=== PATIENT | male | born 1960 | race Caucasian/White ===

== ENCOUNTER → 2016-03-18 | Outpatient (CLI) | payer OTHER ==
[2016-03-18 10:44] LABS: Blood Urea Nitrogen 12 mg/dL (9-20); Non-African American GFR(MDRD) >60 (>60 ml/min/1.73 sqM)
--- NOTE | 2016-03-18 15:36 | CT ---
EXAMINATION TYPE: CT Chest Abd Pelvis w con DATE OF EXAM: 03/18/2016 2:08 PM COMPARISON: 01/02/2016 HISTORY: Colon CA f/u CT DLP: 631.7 mGycm Automated exposure control for dose reduction was used. CONTRAST: CT scan of the chest, abdomen and pelvis is performed with Oral Contrast and with IV Contrast, patien t injected with 100 mL of Omnipaque 300. FINDINGS: CHEST: Right anterior chest wall injection port with catheter tip at the mid SVC. The heart is normal size with small basilar pericardial effusion. Aorta is normal caliber with conventional arch vessel branching anatomy. Scattered nonenlarged mediastinal lymph nodes. No thoracic lymphadenopathy by CT size criteria. Mild biapical pleural-parenchymal scarring. No suspicious pulmonary nodule or mass. No consolidation or pleural effusion. Correlate for COPD. ABDOMEN: Small hiatal hernia. Two hypodense lesions within the inferior right hepatic lobe are noted and are essentially unchanged measuring up to 1.6 cm. Numerous additional hepatic lesions are demonstrated and show areas of partia l calcification, largest within the right hepatic dome spanning up to 4.8 cm, also unchanged. The abiel cifications could reflect prior intra-arterial therapy. No new liver lesions are seen. Stable left lobe biliary ductal dilatation. Portal venous system is pa tent. Adrenal glands, left kidney, spleen, and pancreas show no gross normality. Numerous subcentimeter hypodensities within the right kidney too small for accurate CT characterizati on, stable suggestive of cortical cysts. No dilated small bowel, free fluid, or free air. No mesenteric or retroperitoneal lymphadenopathy. Or al contrast has progressed to the rectum. No pericolonic inflammatory change. PELVIS: Mild circumferential bladder wall thickening is noted. Prostate gland mild prominent measurin g 4.1 cm wide. No abnormal fluid collection the pelvis or pelvic lymphadenopathy seen. Bones: Mild de generative changes lower lumbar spine and mild endplate spondylosis midthoracic spine. No osseous kane tructive process. IMPRESSION: 1. Stable exam with multiple hepatic lesions most of which show partial calcification which could rep resent treated metastatic disease or prior transarterial therapy. No new or enlarging liver lesions a re seen. 2. Nonspecific mild circumferential bladder wall thickening could represent cystitis, bladder wall hy pertrophy, or posttreatment change. Clinically correlate. 3. No suspicious mass or lymphadenopathy seen.
== END | disposition home or self-care (01) ==
LOC: RADPROMAIN 09:59
PROVIDERS: ATTEND Internal Medicine Hematology & Oncology
DX: C18.9 Malignant neoplasm of colon, unspecified (principal); K76.9 Liver disease, unspecified; N32.89 Other specified disorders of bladder
CPT/HCPCS: 82565; 84520; 71260; 74177; 36415; Q9967

== ENCOUNTER → 2016-05-29 | Outpatient (CLI) | payer OTHER ==
--- NOTE | 2016-05-29 13:05 | XR ---
EXAMINATION TYPE: XR abdomen complete w decub DATE OF EXAM: 05/29/2016 1:01 PM COMPARISON: NONE HISTORY: Pain TECHNIQUE: Supine, upright, and left side down lateral decubitus views of the abdomen are obtained. FINDINGS: There is no evidence for pneumoperitoneum. The bowel gas pattern is unremarkable as there is air throughout nondilated small and large bowel. No sizeable air fluid levels. No mass effects are seen. No unusual calcifications. Moderate fecal stasis. IMPRESSION: Unremarkable study
== END ==
LOC: RADXRMAIN 12:30
PROVIDERS: ATTEND Internal Medicine Hematology & Oncology
DX: Z51.11 Encounter for antineoplastic chemotherapy (principal); C18.7 Malignant neoplasm of sigmoid colon; G62.0 Drug-induced polyneuropathy; Z71.89 Other specified counseling
CPT/HCPCS: 74020

== ENCOUNTER → 2016-06-04 | Outpatient (CLI) | payer OTHER ==
[2016-06-04 10:29] LABS: Blood Urea Nitrogen 15 mg/dL (9-20); Non-African American GFR(MDRD) >60 (>60 ml/min/1.73 sqM)
--- NOTE | 2016-06-04 11:36 | CT ---
EXAMINATION TYPE: CT ChestAbdPelvis w con DATE OF EXAM: 06/04/2016 11:12 AM COMPARISON: CT cap March 18, 2016. HISTORY: Colon cancer. Observation for suspected mets per order. CT DLP: 547.10 mGycm. Automated Exposure Control for Dose Reduction was Utilized. CONTRAST: CT scan of the thorax, abdomen and pelvis is performed with oral and with IV Contrast, patient inject ed with 100 ml mL of Omnipaque 300. FINDINGS: LUNGS: Mild underlying emphysematous change with apical bleb formation is present bilaterally. There is no concerning parenchymal nodule or mass seen bilaterally. No pleural effusion or pneumothorax is seen. Lungs are grossly clear. Tracheobronchial tree is patent. MEDIASTINUM: There are no greater than 1 cm hilar or mediastinal lymph nodes. There is slightly more prominent tiny anterior pericardial effusion on axial image 55. No cardiomegaly is seen. Focal calcif ication proximal LAD on axial image 42 is redemonstrated. OTHER: There is stable right internal jugular Mediport catheter terminating at brachiocephalic conflu ence. LIVER/GB: Vague triangular shaped heterogeneous hypodense area right hepatic dome axial image 63 domo uring 4.8 x 3.7 cm with some central calcification is redemonstrated and stable. There is similar les ion inferior right hepatic lobe measuring 4.1 x 2.9 cm felt stable. More vague hypodense area left he patic lobe on axial image 69 is redemonstrated with some calcifications superiorly. Suspect treated m etastatic foci. No new suspicious lesions are clearly seen. PANCREAS: No significant abnormality is seen. SPLEEN: No significant abnormality is seen. ADRENALS: No significant abnormality is seen. KIDNEYS: Some simple appearing cysts scattered throughout the right kidney are redemonstrated seen be st on axial image 35. BOWEL: Stable small hiatal hernia is present. The oral contrast reaches level of the proximal left co nidia. There is no suspicious small or large bowel dilatation identified. There is mild to moderate con centric wall thickening involving the sigmoid rectal colon. This has similar pattern to prior study. A distal colitis is not entirely excluded. GENITAL ORGANS: No gross abnormality seen. LYMPH NODES: No greater than 1cm abdominal or pelvic lymph nodes are appreciated. OSSEOUS STRUCTURES: No significant abnormality is seen. OTHER: No significant additional abnormality is seen. IMPRESSION: Stable appearance to liver favoring treated metastatic disease. No evidence of new mass o r adenopathy to suggest malignant recurrence.
== END | disposition home or self-care (01) ==
LOC: RADPROMAIN 09:52
PROVIDERS: ATTEND Internal Medicine Hematology & Oncology
DX: C18.9 Malignant neoplasm of colon, unspecified (principal)
CPT/HCPCS: 82565; 84520; 71260; 74177; 36415; Q9967

== ENCOUNTER → 2016-07-21 | Outpatient (CLI) | payer OTHER ==
[2016-07-21 08:48] LABS: Blood Urea Nitrogen 17 mg/dL (9-20); Non-African American GFR(MDRD) >60 (>60 ml/min/1.73 sqM)
--- NOTE | 2016-07-21 09:39 | CT ---
EXAMINATION TYPE: CT ChestAbdPelvis w con DATE OF EXAM: 07/21/2016 COMPARISON: Previous study dated 06/04/2016. HISTORY: Colon CA CT DLP: 539.5 mGycm Automated exposure control for dose reduction was used. TECHNIQUE: Helical acquisition through the abdomen and pelvis was obtained without oral contrast but following the intravenous administration of 100 mL of Omnipaque 300. The data was formatted in the a xial, coronal and sagittal projections. FINDINGS: There are bullous changes in the lung apices. These are unchanged from previous. No parench ymal nodules are seen. There is a Port-A-Cath in place overlying the right anterior chest. The tip is in the superior vena c bob. There is some shotty axillary adenopathy on the left. This is unchanged from previous. There is no me diastinal adenopathy. There are some nonenlarged right hilar lymph nodes, unchanged from previous. There is a stable 7 mm pericardial effusion. No pleural fluid is seen. There is a small hiatal hernia. Within the abdomen, the lesion in the inferior aspect of the right lobe of the liver which measures 4 .7 x 3.4 cm on the previous examination measures 5.2 x 5.2 cm on today's examination. Lesion in the d ome of the right lobe of the liver previously measured 3.4 x 4.3 cm. Today measures 4.3 x 4.9 cm. Les ion in the left lobe of the liver has also increased in size slightly. The spleen and gallbladder are normal. Both adrenal glands appear normal. Both kidneys demonstrate function and appear morphologically normal. The pancreas is poorly defined due to a paucity of intraperitoneal and retroperitoneal fat. There is no significant retroperitoneal, iliac or inguinal adenopathy. The bladder is unremarkable. There is persistent thickening at the rectosigmoid junction. This is unchanged from previous. There i s no significant diverticular change and I do not see radiographic evidence of diverticulitis. The ap pendix is not visualized with certainty. Small bowel loops are normal. There is no free fluid and no free air identified. No bony destructive lesion is seen. There is degenerative disc disease at L5-S1. There is facet arthr opathy in the lower lumbar spine. There is diffuse, mild hypertrophic spondylosis. IMPRESSION: 1. INCREASE IN THE SIZE OF THE PATIENT'S HEPATIC LESIONS. 2. EMPHYSEMATOUS CHANGE WITHIN THE LUNGS. 3. STABLE, 7 MM PERICARDIAL EFFUSION. 4. SMALL HIATAL HERNIA. 5. STABLE THICKENING OF THE RECTOSIGMOID JUNCTION. 7. DEGENERATIVE CHANGES WITHIN THE SPINE.
== END | disposition home or self-care (01) ==
LOC: RADCTMAIN 07:47
PROVIDERS: ATTEND Internal Medicine Hematology & Oncology
DX: C18.9 Malignant neoplasm of colon, unspecified (principal); K76.9 Liver disease, unspecified; K63.89 Other specified diseases of intestine; J43.9 Emphysema, unspecified; I31.3 Pericardial effusion (noninflammatory); K44.9 Diaphragmatic hernia without obstruction or gangrene
CPT/HCPCS: 82565; 84520; 71260; 74177; 36415; Q9967

== ENCOUNTER → 2016-10-24 | Outpatient (CLI) | payer OTHER ==
[2016-10-24 13:19] LABS: Blood Urea Nitrogen 8 mg/dL (9-20); Non-African American GFR(MDRD) >60 (>60 ml/min/1.73 sqM)
--- NOTE | 2016-10-24 14:09 | CT ---
EXAMINATION TYPE: CT ChestAbdPelvis w con DATE OF EXAM: 10/24/2016 COMPARISON: 07/21/2016 HISTORY: colon CA CT DLP: 606.4 mGycm CONTRAST: CT scan of the chest, abdomen and pelvis is performed with Oral Contrast and with IV Contrast, patien t injected with 100 mL of Omnipaque 300. CT Chest: LUNGS: The lungs are clear and free of infiltrate or atelectasis. No pulmonary nodule or mass is det ected. No pleural effusion or CT evidence of interstitial lung disease. Hyperinflation consistent wi th COPD. MEDIASTINUM: Thoracic aorta is of normal caliber. The heart is not enlarged. No evidence for media stinal mass or adenopathy. HILAR STRUCTURES: No evidence for mass. No hilar adenopathy is appreciated. OTHER: No significant abnormality. CONTRAST CT ABDOMEN AND PELVIS FINDINGS: LIVER/GB: The mass within the dome of the liver is smaller in size and currently measures 3.4 x 2.2 c m versus 4.3 x 4.9 cm. Left hepatic lobe lesion appears stable. The mass within the anterior segment right hepatic lobe inferiorly appears larger in size and currently measures 6.1 cm x 4.1 cm versus 5. 2 x 5.2 cm. The lesions demonstrate high density material and this may be posttherapeutic in nature. Stable small left peripheral nodule posterior segment right hepatic lobe measuring 2 versus 2 cm. Lob ulated appearance of the liver is again noted. PANCREAS: No inflammation. No distinct mass. SPLEEN: No splenic enlargement. No lesion seen. ADRENALS: No nodule. No thickening. KIDNEYS/BLADDER: No hydronephrosis. No nephrolithiasis. Stable renal cystic changes. BOWEL: Normal appendix. Normal bowel caliber. No inflammation. Moderate fecal stasis. Rectosigmoid thickening persists although is less conspicuous. GENITAL ORGANS: No gross abnormality. LYMPH NODES: No greater than 1cm abdominal or pelvic lymph nodes are appreciated. AORTA: No significant abnormality. OSSEOUS STRUCTURES: Degenerative changes lumbar spine OTHER: No significant additional abnormality is seen. IMPRESSION: 1. Dominant hepatic lesion within the right hepatic lobe inferiorly has increased in size. The lesion within the dome of the liver appears to be slightly smaller in size while the remaining lesions charles in stable. 2. COPD. 3. Rectosigmoid thickening appears to be less conspicuous on today's study.
== END | disposition home or self-care (01) ==
LOC: RADCTMAIN 12:40
PROVIDERS: ATTEND Internal Medicine Hematology & Oncology
DX: C18.7 Malignant neoplasm of sigmoid colon (principal); K76.9 Liver disease, unspecified; J44.9 Chronic obstructive pulmonary disease, unspecified
CPT/HCPCS: 82565; 84520; 71260; 74177; 36415; Q9967

== ENCOUNTER → 2016-10-31 | Outpatient (CLI) | payer OTHER ==
--- NOTE | 2016-11-02 21:04 | MR ---
EXAMINATION TYPE: MR liver wo/w con DATE OF EXAM: 10/31/2016 COMPARISON: CT chest abdomen pelvis October 24, 2016 and older studies. HISTORY: Abnormal CT, HX of Colon Ca, no symptoms CONTRAST: Standard multiplanar, multisequence MRI departmental protocol utilizing 7 mL intravenous Gadavist sherley olinium contrast. Imaging is performed of the abdomen focusing on the liver. FINDINGS: LIVER: Liver is overall normal in size with lobulated contour. Mass in right hepatic dome is larger than suspected on CT, it has lobulated appearance measuring appr oximately 5.5 cm AP diameter by 4.8 cm transverse diameter on axial image 92 series 404. Largest mass inferior right hepatic lobe anterior segment measures approximately 8.2 x 6.8 cm on imag e 59 series 404 also larger than expected on CT. Lesion posterior to this posterior segment right hepatic lobe inferior aspect has lobulated appearanc e measuring 3.5 x 2.2 cm on image 59, some capsular retraction is present. Seen better on MRI versus CT there are multiple additional heterogeneous lesions of T1 hypointensity and T2 hyperintensity scattered throughout the liver majority appear between 0 to 2 cm in size. They show heterogeneous rim type enhancement with central nonenhancement. Findings are consistent with dif fuse hepatic metastatic disease. There is focal moderate intrahepatic biliary dilatation in the left hepatic lobe periphery redemonstr ated likely due to obstructing central neoplasm seen best on coronal T2-weighted series 301 images 9 through 15. Main portal vein is patent extending into right and left portal veins. Hepatic veins draining into IV C are patent. OTHER: No pleural or pericardial effusion is seen. Gallbladder is felt within normal limits. Spleen, pancreas, and both adrenal glands are normal in size. There are a few simple appearing cysts scattere d throughout the right kidney. There is no suspicious small or large bowel dilatation. No definitive abdominal adenopathy is seen. Visualized osseous structures are intact. IMPRESSION: MRI reveals multiple metastatic lesions throughout the liver that are not clearly appreciated on CT, please correlate clinically and with tumor lab values which I assume are rising.
== END | disposition home or self-care (01) ==
LOC: RADMRIMAIN 14:38
PROVIDERS: ATTEND Internal Medicine Hematology & Oncology
DX: C78.7 Secondary malignant neoplasm of liver and intrahepatic bile duct (principal); C18.7 Malignant neoplasm of sigmoid colon
CPT/HCPCS: 74183; A9581

== ENCOUNTER → 2017-02-18 | Outpatient (CLI) | payer OTHER ==
[2017-02-18 13:57] LABS: Blood Urea Nitrogen 19 mg/dL (9-20)
--- NOTE | 2017-02-18 15:31 | CT ---
EXAMINATION TYPE: CT ChestAbdPelvis w con DATE OF EXAM: 02/18/2017 INDICATION: Patient complains of LUQ pain, loss of appetite, and difficulty eating. Follow up for kn own colon CA. COMPARISON: 10/24/2016 CT DLP: 814.4 mGycm CONTRAST: Performed with Oral Contrast and with IV Contrast, patient injected with 100 mL of Omnipaque 300. TECHNIQUE: Axial images at 5 mm thick sections. Reconstructed images in the coronal plane. Delayed images through the kidneys. FINDINGS: CT CHEST: Portion of the thyroid visualized is normal. There is a 0.4 cm nodule adjacent to the anterior right middle lobe adjacent midline fissure, series 4 image 19. There is a 0.7 cm nodule within the anterior left lingula. Series 4 image 25. There is a 0.5 cm nodule within the right middle lobe. Series 4 image 40. There is a 0.6 pleural-based nodule ju st posterior to the costosternal junction in the right middle lobe. Series 4 image 39. There is a 0.5 cm nodule posterior to the sternum right middle lobe. Series 4 image 37 No enlarged mediastinal or hilar adenopathy is evident. The ascending aorta diameter at the level of the main pulmonary artery is 3.3 cm. The main pulmonary artery diameter at the bifurcation is 2.[address] ABDOMEN: Extensive ascites is present. Liver: There is extensive infiltration of the liver with multiple hypodensities compatible with large metastatic lesions. Spleen: Normal Pancreas: Normal Adrenal glands: The adrenal glands are normal. Gallbladder: Not visualized Kidneys: No masses are evident. No hydronephrosis is present. No cysts are present. Delayed images were obtained through the kidneys, which remain unremarkable. Aorta: Normal Inferior vena cava: Normal. CT PELVIS: Loops of bowel within the abdomen and pelvis are normal. There are loops of bowel which are incom pletely distended or lack oral contrast limiting their evaluation. Appendix: Normal as visualized. Urinary bladder: Not identified Genitourinary structures: Prostate is normal Osseous structures: No suspicious lytic or sclerotic lesions. IMPRESSIONS: 1. Extensive extension of the metastatic process to the liver. 2. Interval development of small lateral pulmonary nodules.
== END | disposition home or self-care (01) ==
LOC: RADCTMAIN 13:16
PROVIDERS: ATTEND Internal Medicine Hematology & Oncology
DX: C78.7 Secondary malignant neoplasm of liver and intrahepatic bile duct (principal); C18.7 Malignant neoplasm of sigmoid colon; R91.8 Other nonspecific abnormal finding of lung field
CPT/HCPCS: 82565; 84520; 71260; 74177; Q9967

== ENCOUNTER 2017-02-20 23:56 | Inpatient (IN) | payer MEDICARE, OTHER ==
[2017-02-21] MEDS ORDERED: ONDANSETRON 4 MG/2 ML VIAL IVP STA (00:18)
[2017-02-21] MEDS ORDERED: SODIUM CHLORIDE 0.9% 1,000 ML IV STA ×3 (00:18→01:45)
[2017-02-21] MEDS ORDERED: MORPHINE SULFATE 4 MG/ML SYRINGE IV STA (00:18)
[2017-02-21] MEDS ORDERED: MORPHINE SULFATE 5 MG/ML SYRINGE IVP STA (00:31)
[2017-02-21] MEDS ORDERED: PANTOPRAZOLE 40 MG/10 ML VIAL IVP STA (00:33)
[2017-02-21] MEDS ORDERED: HYDROmorphone 2 MG/ML 1 ML SYRINGE IVP STA (00:33)
[2017-02-21 00:40] LABS: ALT 237 U/L (21-72); AST 607 U/L (17-59); Albumin 2.8 g/dL (3.5-5.0); Alkaline Phosphatase 604 U/L (38-126); Anion Gap 12 mmol/L; Blood Urea Nitrogen 32 mg/dL (9-20); Calcium 8.6 mg/dL (8.4-10.2); Carbon Dioxide 23 mmol/L (22-30); Chloride 100 mmol/L (98-107); Glucose 82 mg/dL (74-99); Magnesium 2.4 mg/dL (1.6-2.3); Phosphorus 3.7 mg/dL (2.5-4.5); Potassium 5.2 mmol/L (3.5-5.1); Sodium 135 mmol/L (137-145); Total Bilirubin 13.5 mg/dL (0.2-1.3)
[2017-02-21 00:43] LABS: Creatine Kinase 151 U/L (55-170)
[2017-02-21 00:48] LABS: Anisocytosis Marked; Basophils % (A) 0 %; Eosinophils # (A) 0.1 k/uL (0-0.7); Eosinophils % (A) 0 %; HCT 38.5 % (39.0-53.0); HGB 11.5 gm/dL (13.0-17.5); Hypochromasia Moderate; Lymphocytes # (A) 0.9 k/uL (1.0-4.8); Lymphocytes % (A) 5 %; MCH 30.1 pg (25.0-35.0); MCHC 29.8 g/dL (31.0-37.0); MCV 100.7 fL (80.0-100.0); Macrocytosis Marked; Mean Platelet Volume 8.9; Monocytes # (A) 1.1 k/uL (0-1.0); Monocytes % (A) 6 %; Neutrophils # (A) 15.4 k/uL (1.3-7.7); Neutrophils % (A) 87 %; Platelet Count 224 k/uL (150-450); RBC 3.82 m/uL (4.30-5.90); RDW 24.4 % (11.5-15.5); WBC 17.7 k/uL (3.8-10.6)
[2017-02-21 00:56] LABS: Creatine Kinase MB 1.1 ng/mL (0.0-2.4); Troponin I <0.012 ng/mL (0.000-0.034)
--- NOTE | 2017-02-21 00:58 | ED ---
General Adult HPI - General Chief complaint: Recheck/Abnormal Lab/Rx Stated complaint: Not eating (Ca Pt) Time Seen by Provider: 02/21/17 00:14 Source: patient, RN notes reviewed, old records reviewed Mode of arrival: wheelchair Limitations: no limitations - History of Present Illness Initial comments: This is a 56-year-old male to the ER for evaluation today. Patient benefited for evaluation regarding severe pain dehydration weight loss not feeling well. Patient has known stage IV colon cancer. Patient denies history of fever just complains of full pain, body pain bowel pain chest pain. Patient has not been hospitalized recently. Patient has not started any new medications. Patient denies any travel. Patient states that he is unable to eat or drink, no diarrhea - Related Data Home Medications Medication Instructions Recorded Confirmed No Known Home Medications [No 06/30/14 07/04/14 Known Home Medications] Allergies Allergy/AdvReac Type Severity Reaction Status Date / Time No Known Allergies Allergy Verified 02/21/17 00:04 Review of Systems ROS Statement: Those systems with pertinent positive or pertinent negative responses have been documented in the HPI. ROS Other: All systems not noted in ROS Statement are negative. Past Medical History Past Medical History: GI Bleed Additional Past Medical History / Comment(s): Recent weight loss. stage 4 colon cancer. History of Any Multi-Drug Resistant Organisms: None Reported Past Surgical History: Orthopedic Surgery Additional Past Surgical History / Comment(s): Screws in lt ankle. mediport right chest. Past Anesthesia/Blood Transfusion Reactions: No Reported Reaction Past Psychological History: No Psychological Hx Reported Smoking Status: Never smoker Past Alcohol Use History: None Reported Past Drug Use History: Marijuana - Past Family History Mother History Unknown: Yes General Exam Limitations: no limitations General appearance: alert, lethargic, in distress, cachectic Head exam: Present: atraumatic, normocephalic, normal inspection Eye exam: Present: normal appearance, PERRL, EOMI. Absent: scleral icterus, conjunctival injection, periorbital swelling ENT exam: Present: normal exam, mucous membranes moist Neck exam: Present: normal inspection. Absent: tenderness, meningismus, lymphadenopathy Respiratory exam: Present: normal lung sounds bilaterally. Absent: respiratory distress, wheezes, rales, rhonchi, stridor Cardiovascular Exam: Present: normal rhythm, tachycardia, normal heart sounds. Absent: systolic murmur, diastolic murmur, rubs, gallop, clicks GI/Abdominal exam: Present: soft, normal bowel sounds. Absent: distended, tenderness, guarding, rebound, rigid Extremities exam: Present: normal inspection, full ROM, normal capillary refill. Absent: tenderness, pedal edema, joint swelling, calf tenderness Back exam: Present: normal inspection Neurological exam: Present: alert, oriented X3, CN II-XII intact Psychiatric exam: Present: normal affect, normal mood Skin exam: Present: warm, dry, intact, normal color. Absent: rash Course Vital Signs 02/20/17 02/21/17 02/21/17 23:59 00:43 01:04 Temperature 97.6 F Pulse Rate 113 H 89 89 Respiratory 20 20 20 Rate Blood Pressure 117/68 118/73 98/56 O2 Sat by Pulse 99 98 97 Oximetry - Reevaluation(s) Reevaluation #1: 02/21/17 00:58 Medical record is reviewed EKG Findings - EKG Comments: EKG Findings:: EKG shows sinus tachycardia rate 121, NJ 126, QRS 68, QTc 465 Medical Decision Making - Medical Decision Making 56 ER for evaluation of weakness dehydration appetite and severe pain. Patient be admitted for rehydration, control symptoms Also found to have flu [place] on Tamiflu. - Lab Data Result diagrams: 02/21/17 00:14 02/21/17 00:14 Lab Results 02/21/17 02/21/17 02/21/17 Range/Units 00:14 00:14 00:14 WBC 17.7 H (3.8-10.6) k/uL RBC 3.82 L (4.30-5.90) m/uL Hgb 11.5 L (13.0-17.5) gm/dL Hct 38.5 L (39.0-53.0) % MCV 100.7 H (80.0-100.0) fL MCH 30.1 (25.0-35.0) pg MCHC 29.8 L (31.0-37.0) g/dL RDW 24.4 H (11.5-15.5) % Plt Count 224 (150-450) k/uL Neutrophils % 87 % Lymphocytes % 5 % Monocytes % 6 % Eosinophils % 0 % Basophils % 0 % Neutrophils # 15.4 H (1.3-7.7) k/uL Lymphocytes # 0.9 L (1.0-4.8) k/uL Monocytes # 1.1 H (0-1.0) k/uL Eosinophils # 0.1 (0-0.7) k/uL Basophils # 0.0 (0-0.2) k/uL Manual Slide Review Performed Hypochromasia Moderate Poikilocytosis (manual Present Anisocytosis Marked Macrocytosis Marked Target Cells Present PT (9.0-12.0) sec INR (<1.2) APTT (22.0-30.0) sec Sodium 135 L (137-145) mmol/L Potassium 5.2 H (3.5-5.1) mmol/L Chloride 100 (98-107) mmol/L Carbon Dioxide 23 (22-30) mmol/L Anion Gap 12 mmol/L BUN 32 H (9-20) mg/dL Creatinine 1.10 (0.66-1.25) mg/dL Est GFR (MDRD) Af Amer >60 (>60 ml/min/1.73 sqM) Est GFR (MDRD) Non-Af >60 (>60 ml/min/1.73 sqM) Glucose 82 (74-99) mg/dL Plasma Lactic Acid Chidi (0.7-2.0) mmol/L Calcium 8.6 (8.4-10.2) mg/dL Phosphorus 3.7 (2.5-4.5) mg/dL Magnesium 2.4 H (1.6-2.3) mg/dL Total Bilirubin 13.5 H (0.2-1.3) mg/dL AST 607 H (17-59) U/L ALT 237 H (21-72) U/L Alkaline Phosphatase 604 H (38-126) U/L Ammonia (<30) umol/L Total Creatine Kinase 151 (55-170) U/L CK-MB (CK-2) 1.1 (0.0-2.4) ng/mL CK-MB (CK-2) Rel Index 0.7 Troponin I <0.012 (0.000-0.034) ng/mL Total Protein 8.0 (6.3-8.2) g/dL Albumin 2.8 L (3.5-5.0) g/dL Lipase (23-300) U/L 02/21/17 02/21/17 02/21/17 Range/Units 00:14 00:14 00:14 WBC (3.8-10.6) k/uL RBC (4.30-5.90) m/uL Hgb (13.0-17.5) gm/dL Hct (39.0-53.0) % MCV (80.0-100.0) fL MCH (25.0-35.0) pg MCHC (31.0-37.0) g/dL RDW (11.5-15.5) % Plt Count (150-450) k/uL Neutrophils % % Lymphocytes % % Monocytes % % Eosinophils % % Basophils % % Neutrophils # (1.3-7.7) k/uL Lymphocytes # (1.0-4.8) k/uL Monocytes # (0-1.0) k/uL Eosinophils # (0-0.7) k/uL Basophils # (0-0.2) k/uL Manual Slide Review Hypochromasia Poikilocytosis (manual Anisocytosis Macrocytosis Target Cells PT 17.2 H (9.0-12.0) sec INR 1.9 H (<1.2) APTT 29.9 (22.0-30.0) sec Sodium (137-145) mmol/L Potassium (3.5-5.1) mmol/L Chloride (98-107) mmol/L Carbon Dioxide (22-30) mmol/L Anion Gap mmol/L BUN (9-20) mg/dL Creatinine (0.66-1.25) mg/dL Est GFR (MDRD) Af Amer (>60 ml/min/1.73 sqM) Est GFR (MDRD) Non-Af (>60 ml/min/1.73 sqM) Glucose (74-99) mg/dL Plasma Lactic Acid Chidi 5.4 H* (0.7-2.0) mmol/L Calcium (8.4-10.2) mg/dL Phosphorus (2.5-4.5) mg/dL Magnesium (1.6-2.3) mg/dL Total Bilirubin (0.2-1.3) mg/dL AST (17-59) U/L ALT (21-72) U/L Alkaline Phosphatase (38-126) U/L Ammonia 17 (<30) umol/L Total Creatine Kinase (55-170) U/L CK-MB (CK-2) (0.0-2.4) ng/mL CK-MB (CK-2) Rel Index Troponin I (0.000-0.034) ng/mL Total Protein (6.3-8.2) g/dL Albumin (3.5-5.0) g/dL Lipase (23-300) U/L 02/21/17 Range/Units 00:14 WBC (3.8-10.6) k/uL RBC (4.30-5.90) m/uL Hgb (13.0-17.5) gm/dL Hct (39.0-53.0) % MCV (80.0-100.0) fL MCH (25.0-35.0) pg MCHC (31.0-37.0) g/dL RDW (11.5-15.5) % Plt Count (150-450) k/uL Neutrophils % % Lymphocytes % % Monocytes % % Eosinophils % % Basophils % % Neutrophils # (1.3-7.7) k/uL Lymphocytes # (1.0-4.8) k/uL Monocytes # (0-1.0) k/uL Eosinophils # (0-0.7) k/uL Basophils # (0-0.2) k/uL Manual Slide Review Hypochromasia Poikilocytosis (manual Anisocytosis Macrocytosis Target Cells PT (9.0-12.0) sec INR (<1.2) APTT (22.0-30.0) sec Sodium (137-145) mmol/L Potassium (3.5-5.1) mmol/L Chloride (98-107) mmol/L Carbon Dioxide (22-30) mmol/L Anion Gap mmol/L BUN (9-20) mg/dL Creatinine (0.66-1.25) mg/dL Est GFR (MDRD) Af Amer (>60 ml/min/1.73 sqM) Est GFR (MDRD) Non-Af (>60 ml/min/1.73 sqM) Glucose (74-99) mg/dL Plasma Lactic Acid Chidi (0.7-2.0) mmol/L Calcium (8.4-10.2) mg/dL Phosphorus (2.5-4.5) mg/dL Magnesium (1.6-2.3) mg/dL Total Bilirubin (0.2-1.3) mg/dL AST (17-59) U/L ALT (21-72) U/L Alkaline Phosphatase (38-126) U/L Ammonia (<30) umol/L Total Creatine Kinase (55-170) U/L CK-MB (CK-2) (0.0-2.4) ng/mL CK-MB (CK-2) Rel Index Troponin I (0.000-0.034) ng/mL Total Protein (6.3-8.2) g/dL Albumin (3.5-5.0) g/dL Lipase 259 (23-300) U/L - Radiology Data Radiology results: report reviewed (cxr w abd is negative for acute dz, ileus), image reviewed Disposition Clinical Impression: Influenza A, Weakness, Dehydration, Anorexia, Cancer, colon Disposition: ADMITTED IP TO THIS HOSP Condition: Poor Referrals: None,Stated [Primary Care Provider] - 1-2 days
[2017-02-21 01:03] LABS: INR 1.9 (<1.2); Partial Thromboplastin Time 29.9 sec (22.0-30.0); Prothrombin Time 17.2 sec (9.0-12.0)
[2017-02-21 01:13] LABS: Poikilocytosis (M) Present; Target Cells Present
--- NOTE | 2017-02-21 01:18 | XR ---
EXAMINATION TYPE: XR abdomen acute w cxr DATE OF EXAM: 02/21/2017 COMPARISON: 12/15/2016 HISTORY: Colon cancer. Weakness. Pain. TECHNIQUE: 3 views FINDINGS: Lungs are clear. There is no heart failure. There is contrast in the large bowel. There are few small bowel loops with air in the mid abdomen. Th ere is increased density over the abdomen that could relate to some ascites. There is no sign of free air. CONCLUSION: There is probably new ascites compared to old exam. Mild small bowel ileus. No free air. No heart clemente lure or pulmonary consolidation.
[2017-02-21] MEDS ORDERED: OSELTAMIVIR 75 MG CAP PO STA (01:40)
[2017-02-21] MEDS ORDERED: DEXTROSE 5%-0.45% NACL 1,000 ML IV ONE (01:45)
[2017-02-21] MEDS ORDERED: SODIUM CHLORIDE 0.9% 500 ML IV STA (01:45)
[2017-02-21] MEDS ORDERED: ONDANSETRON 4 MG/2 ML VIAL IVP PRN (01:50)
[2017-02-21 04:16] LABS: Appearance,Urine Cloudy (Clear); Bilirubin,Urine 3+ (Negative); Blood,Urine Trace (Negative); Color,Urine Dark Yellow; Glucose,Urine (UA) Negative (Negative); Granular Casts,Urine 167 /lpf (0); Hyaline Casts,Urine 36 /lpf (0-2); Ketones,Urine Negative (Negative); Leukocyte Esterase,Urine Negative (Negative); Mucus,Urine Rare /hpf; Nitrite,Urine Negative (Negative); Protein,Urine 2+ (Negative); RBC,Urine 1 /hpf (0-5); Specific Gravity,Urine 1.012 (1.001-1.035); Urobilinogen,Urine <2.0 mg/dL (<2.0); WBC,Urine 5 /hpf (0-5)
[2017-02-21] MEDS: HYDROmorphone 2 MG/ML 1 ML SYRINGE IVP PRN ×2 (10:05→17:10)
[2017-02-21] MEDS: OSELTAMIVIR 75 MG CAP PO SCH ×2 (10:06→20:38)
[2017-02-21] MEDS: ENOXAPARIN 40 MG/0.4 ML SYRINGE SQ SCH (10:06)
[2017-02-21] MEDS: PANTOPRAZOLE 40 MG/10 ML VIAL IVP SCH (10:07)
[2017-02-21 11:13] LABS: ALT 238 U/L (21-72); AST 604 U/L (17-59); Albumin 2.4 g/dL (3.5-5.0); Alkaline Phosphatase 458 U/L (38-126); Anion Gap 9 mmol/L; Blood Urea Nitrogen 34 mg/dL (9-20); Calcium 7.8 mg/dL (8.4-10.2); Carbon Dioxide 24 mmol/L (22-30); Chloride 102 mmol/L (98-107); Glucose 141 mg/dL (74-99); Potassium 5.3 mmol/L (3.5-5.1); Sodium 135 mmol/L (137-145); Total Bilirubin 12.1 mg/dL (0.2-1.3); Total Protein 6.7 g/dL (6.3-8.2)
[2017-02-21 11:37] LABS: Anisocytosis Marked; Basophils % (A) 0 %; Eosinophils % (A) 0 %; HCT 34.3 % (39.0-53.0); HGB 9.9 gm/dL (13.0-17.5); Hypochromasia Marked; Lymphocytes # (A) 0.6 k/uL (1.0-4.8); Lymphocytes % (A) 4 %; MCH 29.7 pg (25.0-35.0); MCHC 28.8 g/dL (31.0-37.0); Macrocytosis Marked; Mean Platelet Volume 9.3; Monocytes % (A) 6 %; Neutrophils # (A) 13.9 k/uL (1.3-7.7); Neutrophils % (A) 88 %; Platelet Count 170 k/uL (150-450); RBC 3.33 m/uL (4.30-5.90); RDW 24.3 % (11.5-15.5); WBC 15.8 k/uL (3.8-10.6)
[2017-02-21 11:52] LABS: Polychromasia Present
--- NOTE | 2017-02-21 16:03 | P.PN ---
Progress Note - Text Consult dictated Impression: 1-Metastatic end-stage colon cancer, failed multiple lines of palliative systemic Chemotherapy 2-Acute Dehydration Recommendations 1- IV Hydration 2- Will ask radiology to compare recent CT study to prior studies 3- Very poor prognosis, has impending liver failure > hospice appropriate Will follow.
--- NOTE | 2017-02-21 16:35 | HP ---
HISTORY AND PHYSICAL CHIEF COMPLAINT: Diminished p.o. intake and as well as tiredness, weakness and dehydration. HISTORY OF PRESENT ILLNESS: This 56-year-old gentleman with a past medical history of multiple medical problems including history of colon cancer with mets, history of GI bleed, being followed by Dr. Minor and taking chemo pill according to him, was complaining of progressive tiredness and weakness. The patient also had diminished appetite. The p.o. intake appears to be extremely poor and the patient came to [facility] and admitted for further evaluation and treatment. The patient also found have dehydration. The patient was also found to have elevated lactic acid also. Bilirubin also indicating hepatic involvement with malignancy. MRI done last year showed significant hepatic metastatic lesions. There is no history of fever, rigors. No headache, loss of consciousness or seizures. Influenza suspected, started on Tamiflu. There is no history of fever, rigors. PAST MEDICAL HISTORY: History of GI bleed, history of colon cancer with metastasis, history of surgery. MEDICATIONS: Prior to admission home medications are oxycodone 1 tab t.i.d. p.r.n. ALLERGIES: None. FAMILY HISTORY: No history of heart disease or strokes in the family. SOCIAL HISTORY: History of THC and previous history of smoking. No history of current smoking or alcohol intake. REVIEW OF SYSTEMS: ENT: No diminished hearing or vision. CARDIOVASCULAR: No angina. RESPIRATORY: As mentioned earlier. GI: As mentioned earlier. : No dysuria. NERVOUS SYSTEM: No numbness, weakness. ALLERGY/IMMUNOLOGY: No asthma or hayfever. MUSCULOSKELETAL: As mentioned earlier. HEMATOLOGY/ONCOLOGY: As mentioned earlier. ENDOCRINE: As mentioned earlier. CONSTITUTIONAL: As mentioned earlier. DERMATOLOGY: Negative. RHEUMATOLOGY: Negative. PSYCHIATRY: As mentioned earlier. PHYSICAL EXAMINATION: Alert and oriented x3. Pulse is 101, blood pressure 100/77, respiration 18, temperature 97.4, pulse ox 100% on 2 L. HEENT: Conjunctivae normal. Oral mucosa dry. NECK: No jugular venous distention. No carotid bruit. No lymph node enlargement. CARDIOVASCULAR: S1, S2 muffled. No S3, no S4. RESPIRATORY: Breath sounds diminished in the bases. A few scattered rhonchi and crackles. ABDOMEN: Soft. Mild diffuse distention. Mild diffuse tenderness on palpation. Hepatomegaly present. No ascites. Bowel sounds diminished. LEGS: Bilateral leg edema. NERVOUS SYSTEM: Higher functions as mentioned. Mild diffuse weakness. LYMPHATICS: No lymphadenopathy in the neck or axillae. SKIN: No ulcer, rash or bleeding. LABS: WBC 16.2, hemoglobin 9.9, sodium 130, potassium 5.2. Other labs noted. ASSESSMENT: 1. Colon cancer with hepatic metastasis. 2. Diminished p.o. intake and dehydration. 3. 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 4. Increased plasma lactic acid 5.4 with sepsis. 5. Increased WBC. 6. Anemia of malignancy. 7. History of gastrointestinal bleed. 8. Remote history of nicotine dependence. 9. Moderate to severe protein calorie malnutrition. RECOMMENDATIONS AND DISCUSSION: This 56-year-old gentleman who presented with multiple complex medical issues, we will monitor the patient closely. Continue the current management and symptomatic treatment. I recommend to continue the pain medications, symptomatic treatment. The flu test will be repeated and if it is negative, Tamiflu may be discontinued. Otherwise resume the rest of the home medications. DVT prophylaxis. Will follow the patient closely with you. I also recommend the patient to follow up with primary physician in the outpatient setting. Discussed with the family. MMYOUSUFL / IJN: [id number] /
[2017-02-21] MEDS: DEXTROSE 5%-0.45% NACL 1,000 ML IV SCH (17:00)
[2017-02-21] MEDS: LEVOFLOXACIN 500MG-D5W PMX 500 MG in DEXTROSE/WATER 1 100ML.BAG IVPB SCH (17:00)
[2017-02-22] MEDS: DEXTROSE 5%-0.45% NACL 1,000 ML IV SCH ×2 (05:10→13:39)
[2017-02-22] MEDS: HYDROmorphone 2 MG/ML 1 ML SYRINGE IVP PRN ×2 (07:54→13:34)
[2017-02-22] MEDS: ENOXAPARIN 40 MG/0.4 ML SYRINGE SQ SCH (07:57)
[2017-02-22] MEDS: PANTOPRAZOLE 40 MG/10 ML VIAL IVP SCH (07:57)
[2017-02-22] MEDS: MEGESTROL 400 MG/10 ML CUP PO SCH (07:57)
[2017-02-22] MEDS: OSELTAMIVIR 75 MG CAP PO SCH (07:57)
[2017-02-22 08:05] LABS: Anisocytosis Moderate; Basophils % (A) 0 %; Eosinophils # (A) 0.1 k/uL (0-0.7); Eosinophils % (A) 1 %; HCT 35.3 % (39.0-53.0); HGB 10.3 gm/dL (13.0-17.5); Hypochromasia Marked; Lymphocytes # (A) 0.5 k/uL (1.0-4.8); Lymphocytes % (A) 4 %; MCHC 29.3 g/dL (31.0-37.0); MCV 102.5 fL (80.0-100.0); Macrocytosis Marked; Mean Platelet Volume 8.7; Monocytes # (A) 0.8 k/uL (0-1.0); Monocytes % (A) 6 %; Neutrophils # (A) 11.7 k/uL (1.3-7.7); Neutrophils % (A) 88 %; Platelet Count 151 k/uL (150-450); RBC 3.44 m/uL (4.30-5.90); RDW 23.6 % (11.5-15.5); WBC 13.3 k/uL (3.8-10.6)
[2017-02-22 08:33] LABS: Polychromasia Present; Target Cells Present
[2017-02-22 08:39] LABS: ALT 281 U/L (21-72); AST 691 U/L (17-59); Albumin 2.5 g/dL (3.5-5.0); Alkaline Phosphatase 486 U/L (38-126); Anion Gap 9 mmol/L; Blood Urea Nitrogen 38 mg/dL (9-20); Carbon Dioxide 23 mmol/L (22-30); Chloride 101 mmol/L (98-107); Glucose 96 mg/dL (74-99); Potassium 5.1 mmol/L (3.5-5.1); Sodium 133 mmol/L (137-145); Total Bilirubin 12.8 mg/dL (0.2-1.3)
--- NOTE | 2017-02-22 08:45 | CONS ---
CONSULTATION ADMITTING PHYSICIAN: Dr. Mcdowell REASON FOR CONSULTATION: Metastatic colon cancer. DATE OF SERVICE: February 21, 2017 HISTORY OF PRESENT ILLNESS: Mr. Freeman is an unfortunate 56-year-old gentleman with metastatic colon cancer. The patient was diagnosed with sigmoid cancer with metastasis to the liver in November of 2014, the cancer was wild type as well as micro satellite stable. Received palliative chemotherapy with FOLFIRI and Vectibix combination with initial good results. However, unfortunately soon after he had further progression and was started on combination chemotherapy with FOLFOX and Avastin with again good palliative results. The treatment was maintained with 5 fluorouracil and Avastin alone. Upon further progression he was started on Lonsurf and more recently on Regorafenib. Followup CT scan was performed on February 18 of this year, the results are in the chart stated to be compared to prior results but unfortunately the comparison result is rather confusing and not stated in the body of the report. The patient presented to the hospital with progressive weakness, decreased oral solid and liquid intake. Increasing right upper quadrant abdominal pain as well as right shoulder pain. He was found to be dehydrated. When he was seen today he reported feeling somewhat comfortable. He is still very anorexic and appeared to have lost significant weight over the last few weeks. PAST MEDICAL HISTORY: 1. Metastatic colon cancer with diagnostic and therapeutic symptoms as indicated above. 2. Prior gastrointestinal bleeding. PAST SOCIAL HISTORY: Colonoscopy. SOCIAL HISTORY: The patient is a lifetime nonsmoker. Denies any excessive use of alcohol. FAMILY HISTORY: Noncontributory. REVIEW OF SYSTEMS: Progressive weakness, loss of functional status, anorexia and weight loss. Increasing abdominal and shoulder pain. EXAMINATION: The patient was alert, oriented. Pale, icteric and cachectic. Skin is warm and dry. Blood pressure is 100/71, pulse is 101 and regular and respiratory rate was 18, not labored. Temperature 97.4. No pathologic lymphadenopathy. Trachea was in midline. Sclerae were icteric. Heart is sounds normal S1 and S2. There is no S3, rubs or murmurs auscultated. ABDOMEN: Soft. The liver and spleen were not clinically palpable and no masses, tenderness or inguinal lymphadenopathy. Extremities appears to be grossly unremarkable with cachexia. IMPRESSION: 1. End-stage metastatic colon cancer to the liver. He has failed multiple lines of systemic therapy and currently has impending liver failure. 2. Acute dehydration. 3. Abdominal and shoulder pain likely due to progressive metastatic disease to the liver. RECOMMENDATION: 1. Agree with current management. 2. We will ask Radiology to state comparison results for the recently performed CT scan. I suspect however significant clinical progression. 3. The patient has poor prognosis with impending liver failure. He is a good candidate for hospice care. 4. Analgesia as needed. 5. We will follow the patient along with you in the hospital. Further recommendations to follow if needed. Thank you for asking us to participate in the care of Mr. Freeman. MARY / ALFONSO: [id number] /
[2017-02-22] MEDS ORDERED: TEMAZEPAM 15 MG CAP PO PRN (12:14)
[2017-02-22] MEDS: LACTULOSE 20 GM/30 ML CUP PO SCH ×2 (13:40→20:06)
[2017-02-22] MEDS: LEVOFLOXACIN 500MG-D5W PMX 500 MG in DEXTROSE/WATER 1 100ML.BAG IVPB SCH (17:45)
[2017-02-23] MEDS: DEXTROSE 5%-0.45% NACL 1,000 ML IV SCH ×2 (06:04→20:37)
[2017-02-23 08:34] LABS: Albumin 2.3 g/dL (3.5-5.0); Calcium 8.1 mg/dL (8.4-10.2); Potassium 5.4 mmol/L (3.5-5.1); Total Bilirubin 12.9 mg/dL (0.2-1.3); Total Protein 6.6 g/dL (6.3-8.2)
[2017-02-23] MEDS: LACTULOSE 20 GM/30 ML CUP PO SCH ×3 (09:00→22:24)
[2017-02-23] MEDS: ENOXAPARIN 40 MG/0.4 ML SYRINGE SQ SCH (09:03)
[2017-02-23] MEDS: PANTOPRAZOLE 40 MG/10 ML VIAL IVP SCH (09:03)
[2017-02-23] MEDS: MEGESTROL 400 MG/10 ML CUP PO SCH (09:03)
--- NOTE | 2017-02-23 09:10 | PN ---
PROGRESS NOTE DATE OF SERVICE: 02/22/2017 This 56-year-old gentleman with diminished p.o. intake, extreme emaciation, tiredness, weakness, dehydration, being closely monitored. The patient has colon cancer with METS and on the p.o. chemotherapy and the patient was also seen by Hematology Oncology. The patient is hospice appropriate according to Hematology/Oncology, but however the patient is also complaining of insomnia at this time. Bilirubin is extremely elevated. Minimal hepatic flap is noted. PAST MEDICAL HISTORY: Reviewed. REVIEW OF SYSTEMS: Cardiovascular: No angina. Respiration as mentioned earlier. GI: As mentioned earlier. : No dysuria. Central nervous system: As mentioned earlier. CURRENT MEDICATIONS ARE: Reviewed and include: 1. Lovenox 40 mg subcu daily. 2. Dilaudid 2 mg p.r.n. 3. Cephulac 30 mg t.i.d. 4. Levaquin 500 daily. 5. Megace 400 mg p.o. daily. 6. Zofran. 7. Percocet. 8. Protonix. 9. Restoril. PHYSICAL EXAM: Patient is alert, oriented x2. Pulse is 103, blood pressure 97/52, respiration 18, temperature 97.4, pulse ox 98% on room air. HEENT: Conjunctivae are icteric. Oral mucosa . Neck: No jugular venous distention. No carotid bruit. No lymph node enlargement. The patient is extremely emaciated. BMI is only 18.3. Cardiovascular system: S1, S2. No S3, no S4. RESPIRATORY: Breath sounds diminished in the bases. A few scattered rhonchi and crackles. ABDOMEN: Soft. Mild diffuse distention present. Hepatomegaly present. No ascites. LEGS: Minimal edema. Nervous system: Higher functions as mentioned earlier. Moves all 4 limbs. Mild diffuse weakness and diffuse wasting also present. Skin icteric. LABS: WBC 13.2, hemoglobin 10.6, sodium 133. Creatinine is 1.35. Lactic acid elevated 4.3. Calcium is 8 and total bilirubin is 12.8. AST/ALT is also elevated. Albumin is 2.5. ASSESSMENT: 1. Colon cancer with hepatic metastasis. 2. Diminished p.o. intake and dehydration present on admission. 3. Severe malnutrition with BMI of 18.3. 4. Hepatitis secondary to mets with malignancy with increased bilirubin and as well as increased AST, ALT, and alkaline phosphatase. 5. Increased plasma lactic acid 5.4. Rule out sepsis. 6. Increased WBC. 7. Anemia of malignancy. 8. History of gastrointestinal bleed. 9. Remote history of nicotine dependence. 10.Hyponatremia. RECOMMENDATIONS AND DISCUSSION: In this 56-year-old gentleman who presented with multiple complex medical issues , we will monitor the patient closely. Continue the current medications. Check a serum ammonia. Otherwise, lactulose current regimen. Closely with Oncology. Continue with IV fluids and also have infectious disease evaluation. Guarded prognosis because of multiple complex medical issues and further recommendations to follow. See orders for details. Prognosis guarded. MMODL / IJN: [id number] / MTDD
--- NOTE | 2017-02-23 10:40 | CONS ---
CONSULTATION DATE OF SERVICE: 02/22/2017 REASON FOR CONSULTATION: sepsis and antibiotic recommendation. HISTORY OF PRESENT ILLNESS: Patient is a 56-year-old male with a past medical history significant for a metastatic colon cancer diagnosed back in November of 2014 for which the patient has been on chemotherapy, did have MediPort on the right upper chest. Patient presenting to the ER at [facility] with chief complaints of generalized weakness that has been progressively getting worse over the last few days. The patient says his oral intake has significantly decreased and feels very dehydrated. Though, the patient denies having any difficulty swallowing, though. The patient has been complaining of some vague lower abdominal pain for the last 2-3 days dull in nature 3 out of 10 and no radiation and no worsening. Did not have any bowel movement for the last few days. The patient denies any high-grade fever, though. Patient denies having any chest pain or shortness of breath or cough and no significant urinary symptoms of burning or frequency. Patient on arrival to the ER was noticed to be afebrile. However, the patient did have elevated white count of 17.7. The patient's liver enzymes are elevated and the urine was negative. Patient influenza serology was negative as well. Patient subsequently has been started on levofloxacin, Tamiflu, Protonix. I was asked to see the patient for further recommendation regarding possible source of sepsis and antibiotic therapy. REVIEW OF SYSTEMS: CONSTITUTIONAL: Positive for weakness but no fever. EYES: No complaint. ENT: No complaint. RESPIRATORY: No complaint. CARDIOVASCULAR: No complaint. GENITOURINARY: No complaint, GASTROINTESTINAL; As per HPI. MUSCULOSKELETAL: No complaint. INTEGUMENTARY: No complaint. PSYCHOLOGICAL: No complaint. ENDOCRINE: No complaint. NEUROLOGICAL: No complaint. PAST MEDICAL HISTORY: Significant for metastatic colon cancer, GI bleed. PAST SURGICAL HISTORY: MediPort right chest, left ankle for fracture repair. SOCIAL HISTORY: No history of smoking, drinking. Did admit to marijuana use. FAMILY HISTORY: No pertinent findings noticed. ALLERGIES: No known drug allergies. MEDICATION: Currently include the patient is on dextrose, Lovenox, Dilaudid, lactulose, Levaquin, Megace, Zofran, Tamiflu, Percocet, Protonix, Restoril. PHYSICAL EXAMINATION: Blood pressure 106/69 with a pulse of 104, temperature 97.4. He is 95% on room air. General description is a middle-aged male, lying in bed in no distress. No tachypnea or accessory muscle for respiration use. HEENT: Shows scleral icterus is positive. Oral mucosa is dry. No thrush. NECK: Trachea central, no thyromegaly. LUNGS: Unlabored breathing, clear to auscultation anteriorly. No wheeze or crackle. HEART: S1, S2. Regular rate and rhythm. No murmur ABDOMEN: Soft, not distended. No guarding or rigidity, no organomegaly. EXTREMITIES: No edema of the feet. SKIN EXAMINATION: No rash or mass palpable. NEUROLOGICAL: Patient is awake, alert, oriented x3. Mood and affect normal. LABS: Hemoglobin is 10.8, white count of 13.3 with a BUN of 38, creatinine 1.35. Lactic acid was elevated, down to normal. Liver exam remains to be elevated. Blood culture obtained, currently pending. Urine culture so far negative. Influenza serology was negative. The patient did have a CT of the abdomen, pelvis and chest done on February 18, which did show extension of the metastatic process to the liver. Interval development of small pulmonary nodule. DIAGNOSTIC IMPRESSION AND PLAN: Patient with leukocytosis in a patient who does have a history of metastatic colon cancer with METS to the liver. Admitted, presented to the hospital with generalized weakness, anorexia, no energy. The white count elevation more likely related to his extensive metastatic disease. Clinically doubt any infectious etiology as the patient is not running any fever and does not look toxic. The patient did not have significant respiratory symptoms and influenza PCR is negative, make it to be unlikely include influenza A. PLAN: 1. Recommend discontinuation of the Tamiflu. 2. May consider short course of Levaquin while waiting for the culture to finalize. 3. In view of the extensive metastatic disease, the patient would benefit from a hospice-oriented care. 4, we will continue to monitor patient closely for any signs and symptoms infection at which time cultures will be obtained before starting his antibiotic therapy MMODL / IJN: [id number] / MARQUITA
[2017-02-23] MEDS: oxyCODONE-APAP 10-325MG 1 EACH TAB PO PRN ×2 (11:19→20:38)
[2017-02-23 13:59] LABS: Anisocytosis Marked; Basophils # (A) 0.1 k/uL (0-0.2); Basophils % (A) 1 %; Eosinophils # (A) 0.1 k/uL (0-0.7); Eosinophils % (A) 0 %; HCT 35.8 % (39.0-53.0); HGB 10.5 gm/dL (13.0-17.5); Hypochromasia Marked; Lymphocytes # (A) 1.8 k/uL (1.0-4.8); Lymphocytes % (A) 15 %; MCH 30.9 pg (25.0-35.0); MCHC 29.3 g/dL (31.0-37.0); MCV 105.6 fL (80.0-100.0); Macrocytosis Marked; Mean Platelet Volume 12.5; Monocytes # (A) 1.1 k/uL (0-1.0); Monocytes % (A) 9 %; Neutrophils % (A) 74 %; RBC 3.39 m/uL (4.30-5.90); WBC 12.2 k/uL (3.8-10.6)
[2017-02-23 14:00] LABS: RDW 25.2 % (11.5-15.5)
[2017-02-23 15:12] LABS: Platelet Count 85 k/uL (150-450); Poikilocytosis (M) Present; Target Cells Present
[2017-02-23] MEDS: LEVOFLOXACIN 500MG-D5W PMX 500 MG in DEXTROSE/WATER 1 100ML.BAG IVPB SCH (15:14)
[2017-02-23] MEDS ORDERED: SODIUM POLYSTYRENE SULFONATE 15 GM/60 ML BOTTLE PO ONE (15:30)
--- NOTE | 2017-02-23 23:49 | PN ---
PROGRESS NOTE DATE OF SERVICE: 02/23/2017 REASON FOR FOLLOWUP: Leukocytosis. INTERVAL HISTORY: The patient is afebrile. He has been breathing comfortably. He is still feeling weak and tired, with no energy. Oral intake remains poor. No nausea or vomiting. Did not have any bowel movement. PHYSICAL EXAMINATION: Blood pressure is 91/55 with a pulse of 104, temperature 97.4. He is 97% on room air. General description is a middle-aged male lying in bed in no distress. RESPIRATORY SYSTEM: Unlabored breathing. Decreased breath sounds in the bases. No wheeze. HEART: S1, S2. Regular rate and rhythm. ABDOMEN: Soft. No tenderness. LABS: Hemoglobin is 10.5, white count 12.2 with a BUN of 43, creatinine 1.68. DIAGNOSTIC IMPRESSION AND PLAN: Patient with leukocytosis, more likely related to his metastatic liver disease from colon cancer. Clinically doubt infectious etiology. White count is showing a downward trend. Continue with empiric Levaquin at this point. Continue supportive care. MMODL / IJN: [id number] /
[2017-02-24] MEDS: LACTULOSE 20 GM/30 ML CUP PO SCH ×3 (07:33→21:08)
[2017-02-24] MEDS: PANTOPRAZOLE 40 MG/10 ML VIAL IVP SCH (07:33)
[2017-02-24] MEDS: ENOXAPARIN 40 MG/0.4 ML SYRINGE SQ SCH (07:33)
[2017-02-24] MEDS: MEGESTROL 400 MG/10 ML CUP PO SCH (07:33)
[2017-02-24 09:07] LABS: Albumin 2.1 g/dL (3.5-5.0); Calcium 7.9 mg/dL (8.4-10.2); Total Bilirubin 13.1 mg/dL (0.2-1.3)
[2017-02-24 09:09] LABS: Anisocytosis Moderate; Basophils % (A) 0 %; Eosinophils % (A) 0 %; HCT 32.2 % (39.0-53.0); HGB 9.6 gm/dL (13.0-17.5); Hypochromasia Marked; Lymphocytes # (A) 0.4 k/uL (1.0-4.8); Lymphocytes % (A) 5 %; MCH 30.1 pg (25.0-35.0); MCHC 29.7 g/dL (31.0-37.0); MCV 101.3 fL (80.0-100.0); Macrocytosis Marked; Mean Platelet Volume 10.8; Monocytes # (A) 1.1 k/uL (0-1.0); Monocytes % (A) 12 %; Neutrophils # (A) 7.2 k/uL (1.3-7.7); Neutrophils % (A) 80 %; RBC 3.17 m/uL (4.30-5.90); RDW 23.8 % (11.5-15.5); WBC 9.1 k/uL (3.8-10.6)
[2017-02-24 09:13] LABS: Platelet Count 78 k/uL (150-450)
[2017-02-24 10:28] LABS: Target Cells Present
[2017-02-24 10:29] LABS: Poikilocytosis (M) Present
--- NOTE | 2017-02-24 10:35 | PN ---
PROGRESS NOTE DATE OF SERVICE: 02/23/2017 This is a 56-year-old gentleman admitted with multiple medical problems including colon cancer with METS, severely jaundiced. The patient also had elevated lactic acid levels. Dr. Minor saw the patient and recommended possible hospice. White count is improving. PHYSICAL EXAM: Patient is alert and oriented x3. Pulse is 104, blood pressure 91/55, respirations 16, temperature is 97.4, pulse ox 97% on room air. HEENT: Conjunctivae icteric, oral mucosa icteric. NECK: No jugular venous distension. CARDIOVASCULAR SYSTEM: S1, S2, muffled. RESPIRATORY: Breath sounds diminished at the bases, a few scattered rhonchi. ABDOMEN: Soft, distention present. LEGS: No edema, no swelling. NERVOUS SYSTEM: Diffusely weak. LABS: Sodium 130, potassium 5.4, bilirubin is 12.5. The hepatic enzymes, the AST is increasing trended 750, alk phos is 467. ASSESSMENT: 1. Colon cancer with hepatic METS, worsening. 2. Diminished p.o. intake with dehydration, present on admission. 3. Severe malnutrition with a body mass index of 18.3. 4. Elevated AST, ALT and alkaline phosphatase secondary to hepatic malignancy. 5. Increased plasma lactic acid, sepsis unlikely. 6. Increased WBC. 7. Anemia of malignancy. 8. History of gastrointestinal bleed. 9. Remote history of nicotine dependence. 10.Hyponatremia. 11.FULL CODE. RECOMMENDATION: Recommend to continue current management and symptomatic treatment. Otherwise, will await Hematology/Oncology input regarding the further course of action. Otherwise, prognosis guarded because of multiple complex medical issues and further recommendations to follow. MMODL / IJN: [id number] /
[2017-02-24] MEDS: DEXTROSE 5%-0.45% NACL 1,000 ML IV SCH ×2 (11:18→21:44)
[2017-02-24 11:25] VITALS: BMI 23.3
--- NOTE | 2017-02-24 14:56 | PN ---
PROGRESS NOTE DATE OF SERVICE: 02/24/2017 REASON FOR FOLLOWUP: Leukocytosis. INTERVAL HISTORY: The patient is afebrile, has been breathing comfortably. Overall oral intake remains to be poor. No nausea, no vomiting. No abdominal pain. Did have some bowel movement yesterday, but no loose stool. PHYSICAL EXAMINATION: Blood pressure 92/53 with a pulse of 100, temperature OF 97.3. He is 99% on room air. General description is a middle-aged male, lying in bed in no distress. HEENT EXAMINATION: Pallor. Oral mucosa is dry. LUNGS: Unlabored breathing, clear to auscultation. HEART: S1, S2. Regular rate and rhythm. ABDOMEN: Soft, no tenderness. LABS: Hemoglobin 9.6 with a white count of 9.1 with a BUN of 47, creatinine is 1.95. DIAGNOSTIC IMPRESSION AND PLAN: Patient with leukocytosis, more likely secondary to significant liver METS from his colon cancer. No clear focus of infection. The white count already normalized. Will finish a course of oral Levaquin. Sister present at bedside. Questions were answered. MMODL / IJN: [id number] /
[2017-02-24] MEDS ORDERED: LEVOFLOXACIN 500 MG TAB PO SCH (16:00)
--- NOTE | 2017-02-24 16:47 | PN ---
PROGRESS NOTE DATE OF SERVICE: 02/24/2017. INTERVAL HISTORY: This 56-year-old gentleman was admitted with colon cancer with METS is being closely monitored. The possibility of hospice also considered. No chest pain. No palpitations. No fever. Patient complaining of increasing tiredness and weakness. Bilirubin is increasing. EXAM: Alert and oriented x3. Pulse 95. Blood pressure 86/50, respiration 20, temperature 97.3, pulse ox 98% on room air. HEENT: Conjunctivae icteric. Neck no jugular venous distention. Cardiovascular: S1, S2. Respirations: Breath sounds diminished in the bases. A few scattered rhonchi and crackles. Abdomen soft, distended. Central nervous system: No focal deficits. LABS: WBC 9.8, hemoglobin is 9.6 and total bilirubin is 13.1 and AST is 741. ASSESSMENT: 1. Colon cancer with hepatic METS, worsening. 2. Diminished p.o. intake, dehydration present on admission. 3. Severe malnutrition with body mass index of 18.3. 4. Elevated AST, ALT, alkaline phosphatase secondary to hepatic malignancy. 5. Increased plasma lactic acid and sepsis . 6. Increased WBC. 7. Anemia of malignancy. 8. History of gastrointestinal bleed. 9. Remote history of nicotine dependence. 10.Hyponatremia. 11.FULL CODE. RECOMMENDATIONS AND DISCUSSION: Recommend to continue current medications, management and symptomatic treatment. Otherwise, at this time, I would recommend repeat labs. We will continue to monitor. I had a detailed discussion with the sister. The sister will talk with the family regarding the hospice and closely follow with Hematology/Oncology. Guarded prognosis. Further recommendations to follow. MMODL / IJN: [id number] / MTDD
[2017-02-24] MEDS: oxyCODONE-APAP 10-325MG 1 EACH TAB PO PRN (20:15)
[2017-02-24] MEDS ORDERED: SODIUM CHLORIDE 0.9% 250 ML IV SCH (21:00)
[2017-02-25] MEDS: PANTOPRAZOLE 40 MG/10 ML VIAL IVP SCH (07:42)
[2017-02-25] MEDS: ENOXAPARIN 40 MG/0.4 ML SYRINGE SQ SCH (07:42)
[2017-02-25] MEDS: MEGESTROL 400 MG/10 ML CUP PO SCH (07:42)
[2017-02-25] MEDS: LACTULOSE 20 GM/30 ML CUP PO SCH ×3 (07:42→22:56)
[2017-02-25 08:06] LABS: Albumin 2.1 g/dL (3.5-5.0); Calcium 7.7 mg/dL (8.4-10.2); Potassium 5.3 mmol/L (3.5-5.1); Total Bilirubin 13.5 mg/dL (0.2-1.3)
[2017-02-25 08:14] LABS: Anisocytosis Marked; Basophils % (A) 0 %; Eosinophils % (A) 0 %; HCT 32.3 % (39.0-53.0); HGB 9.8 gm/dL (13.0-17.5); Hypochromasia Marked; Lymphocytes # (A) 0.4 k/uL (1.0-4.8); Lymphocytes % (A) 6 %; MCH 30.1 pg (25.0-35.0); MCHC 30.3 g/dL (31.0-37.0); MCV 99.3 fL (80.0-100.0); Macrocytosis Marked; Mean Platelet Volume 11.8; Monocytes # (A) 1.1 k/uL (0-1.0); Monocytes % (A) 14 %; Neutrophils % (A) 77 %; RBC 3.26 m/uL (4.30-5.90); WBC 7.8 k/uL (3.8-10.6)
[2017-02-25] MEDS: DEXTROSE 5%-0.45% NACL 1,000 ML IV SCH ×2 (08:19→19:44)
[2017-02-25 08:23] LABS: RDW 25.5 % (11.5-15.5)
[2017-02-25 08:24] LABS: Platelet Count 62 k/uL (150-450)
[2017-02-25 09:12] LABS: Large Platelets Present; Poikilocytosis (M) Present; Target Cells Present
[2017-02-25] MEDS ORDERED: LEVOFLOXACIN 250 MG TAB PO SCH (16:00)
--- NOTE | 2017-02-25 20:11 | P.PN ---
Subjective Progress Note Date: 02/25/17 Principal diagnosis: progressive weakness secondary to malignancy Patient seen today in follow-up, there is a meeting with the family tomorrow for assistance in decision making and transition to hospice. Patient was not able to explain what is happening to him, he is confused about his situation, patient did recognize who I was and called me by name Objective - Vital Signs Vital signs: Vital Signs Temp 97 F L 02/25/17 15:00 Pulse 90 02/25/17 15:00 Resp 18 02/25/17 15:00 BP 89/51 02/25/17 15:00 Pulse Ox 95 02/25/17 15:00 Intake & Output 02/25/17 02/25/17 02/26/17 06:59 18:59 06:59 Intake Total 1850 Balance 1850 Intake: Intake, IV Titration 1850 Amount Dextrose 5%-0.45% NaCl 1, 1600 000 ml @ 100 mls/hr IV . Q10H GEOFF Rx#:[id number] Sodium Chloride 0.9% 250 250 ml @ 999 mls/hr IV .Q16M GEOFF Rx#:[id number] Other: Voiding Method Urinal Urinal # Voids 1 1 # Bowel Movements 1 - Exam Patient has changed dramatically since I last saw him about a month and a half ago. He is jaundiced, profound muscle wasting, frail, large distended abdomen with venous distension, he is restless, by turning out the lights the patient drifted off to sleep quickly - Labs CBC & Chem 7: 02/25/17 07:21 02/25/17 07:21 Labs: Abnormal Lab Results - Last 24 Hours (Table) 02/25/17 02/25/17 Range/Units 07:21 07:21 RBC 3.26 L (4.30-5.90) m/uL Hgb 9.8 L (13.0-17.5) gm/dL Hct 32.3 L (39.0-53.0) % MCHC 30.3 L (31.0-37.0) g/dL RDW 25.5 H (11.5-15.5) % Plt Count 62 L (150-450) k/uL Lymphocytes # 0.4 L (1.0-4.8) k/uL Monocytes # 1.1 H (0-1.0) k/uL Sodium 135 L (137-145) mmol/L Potassium 5.3 H (3.5-5.1) mmol/L Carbon Dioxide 15 L (22-30) mmol/L BUN 51 H (9-20) mg/dL Creatinine 2.01 H (0.66-1.25) mg/dL Calcium 7.7 L (8.4-10.2) mg/dL Total Bilirubin 13.5 H (0.2-1.3) mg/dL AST 882 H (17-59) U/L ALT 343 H (21-72) U/L Alkaline Phosphatase 395 H (38-126) U/L Total Protein 6.0 L (6.3-8.2) g/dL Albumin 2.1 L (3.5-5.0) g/dL Microbiology - Last 24 Hours (Table) 02/21/17 00:14 Blood Culture - Preliminary Blood No Growth after 96 hours Assessment and Plan (1) Metabolic encephalopathy Current Visit: Yes Status: Acute Priority: High Code(s): G93.41 - METABOLIC ENCEPHALOPATHY SNOMED Code(s): 86164142 (2) Metastatic colon cancer to liver Current Visit: Yes Status: Acute Priority: High Code(s): C18.9 - MALIGNANT NEOPLASM OF COLON, UNSPECIFIED; C78.7 - SECONDARY MALIG NEOPLASM OF LIVER AND INTRAHEPATIC BILE DUCT SNOMED Code(s): 51002974 (3) Jaundice Current Visit: Yes Status: Acute Priority: High Code(s): R17 - UNSPECIFIED JAUNDICE SNOMED Code(s): 39220378 (4) Muscle wasting Current Visit: Yes Status: Acute Priority: High Code(s): M62.50 - MUSCLE WASTING AND ATROPHY, NEC, UNSP SITE SNOMED Code(s): 09850191 Plan: Unfortunately patient is terminal from his disease, suspect that he will succumb to his disease within the next several days. His confusion is from metabolic encephalopathy from involvement of the liver with metastasis from colon cancer. Could there be brain metastases? that is a possibility, though not as likely. If patient was found to have brain metastases he is not in any physical condition to receive any treatment. Patient unfortunately is having difficulties with decision making, he is not able to clearly understand what is happening so unable to understand plan of care and why. There is a family meeting in the a.m. with hospice, agree with comfort measures only, in the best setting for the patient and the family.
[2017-02-25] MEDS ORDERED: SODIUM CHLORIDE 0.9% 500 ML IV ONE (22:59)
[2017-02-25] MEDS ORDERED: LORazepam 2 MG/ML INJ IV PRN (23:00)
[2017-02-25] MEDS ORDERED: DEXTROSE 5%-0.45% NACL 1,000 ML IV SCH (23:00)
[2017-02-26] MEDS ORDERED: SODIUM CHLORIDE 0.9% 500 ML IV ONE (03:29)
[2017-02-26 08:41] VITALS: BP 68/43; PULSE 74; RESP 18; TEMP 96.9
[2017-02-26 08:45] LABS: Anisocytosis Marked; Basophils % (A) 0 %; Eosinophils % (A) 0 %; HCT 33.4 % (39.0-53.0); HGB 9.6 gm/dL (13.0-17.5); Hypochromasia Marked; Lymphocytes # (A) 0.4 k/uL (1.0-4.8); Lymphocytes % (A) 4 %; MCH 30.4 pg (25.0-35.0); MCHC 28.8 g/dL (31.0-37.0); Macrocytosis Marked; Mean Platelet Volume 12.8; Monocytes # (A) 0.9 k/uL (0-1.0); Monocytes % (A) 10 %; Neutrophils # (A) 7.4 k/uL (1.3-7.7); Neutrophils % (A) 82 %; Platelet Count 56 k/uL (150-450); RBC 3.17 m/uL (4.30-5.90)
[2017-02-26 08:51] LABS: MCV 105.4 fL (80.0-100.0); RDW 25.7 % (11.5-15.5)
[2017-02-26 09:12] LABS: Albumin 1.8 g/dL (3.5-5.0); Calcium 7.5 mg/dL (8.4-10.2); Potassium 5.3 mmol/L (3.5-5.1); Total Bilirubin 13.7 mg/dL (0.2-1.3); Total Protein 5.5 g/dL (6.3-8.2)
[2017-02-26 10:34] LABS: Target Cells Present
--- NOTE | 2017-02-26 17:14 | P.PN ---
Subjective Progress Note Date: 02/25/17 progress note being dictated for Dr. Paris Interval history:this is a 56-year-old gentleman admitted with colon cancer with metastasis and multiple other medical issues. condition worsening, T bili, LFTs worsening, increased fatigue. diet intake poor.Family meeting with social work today regarding hospice, GIP. Patient made no code, no intubation, no CPR per patient's request. Objective - Vital Signs Vital signs: Vital Signs Temp 97 F L 02/25/17 15:00 Pulse 90 02/25/17 15:00 Resp 18 02/25/17 15:00 BP 89/51 02/25/17 15:00 Pulse Ox 95 02/25/17 15:00 Intake & Output 02/25/17 02/25/17 02/26/17 06:59 18:59 06:59 Intake Total 1850 Balance 1850 Intake: Intake, IV Titration 1850 Amount Dextrose 5%-0.45% NaCl 1, 1600 000 ml @ 100 mls/hr IV . Q10H GEOFF Rx#:[id number] Sodium Chloride 0.9% 250 250 ml @ 999 mls/hr IV .Q16M GEOFF Rx#:[id number] Other: Voiding Method Urinal Urinal # Voids 1 1 # Bowel Movements 1 - Exam PHYSICAL EXAM: VITAL SIGNS: [as above] GENERAL: lying in bed, tired appearing, alert and oriented 3 HEENT: Conjunctivae normal. eyes normal. oral mucosa dry NECK: No JVD. No thyroid enlargement. No LNs CARDIOVASCULAR: S1, S2 muffled. No murmur RESPIRATION: Breath sounds diminished in the bases. scatteredrhonchi , and crackles. ABDOMEN: Soft, nontender . No guarding. no masses palpable..Bowel sounds heard. LEGS: positive edema. no swelling PSYCHIATRY: Alert and oriented -3, mood and affect normal. NERVOUS SYSTEM: No focal deficits. - Labs CBC & Chem 7: 02/26/17 08:03 02/26/17 08:03 Labs: Abnormal Lab Results - Last 24 Hours (Table) 02/25/17 02/25/17 Range/Units 07:21 07:21 RBC 3.26 L (4.30-5.90) m/uL Hgb 9.8 L (13.0-17.5) gm/dL Hct 32.3 L (39.0-53.0) % MCHC 30.3 L (31.0-37.0) g/dL RDW 25.5 H (11.5-15.5) % Plt Count 62 L (150-450) k/uL Lymphocytes # 0.4 L (1.0-4.8) k/uL Monocytes # 1.1 H (0-1.0) k/uL Sodium 135 L (137-145) mmol/L Potassium 5.3 H (3.5-5.1) mmol/L Carbon Dioxide 15 L (22-30) mmol/L BUN 51 H (9-20) mg/dL Creatinine 2.01 H (0.66-1.25) mg/dL Calcium 7.7 L (8.4-10.2) mg/dL Total Bilirubin 13.5 H (0.2-1.3) mg/dL AST 882 H (17-59) U/L ALT 343 H (21-72) U/L Alkaline Phosphatase 395 H (38-126) U/L Total Protein 6.0 L (6.3-8.2) g/dL Albumin 2.1 L (3.5-5.0) g/dL Microbiology - Last 24 Hours (Table) 02/21/17 00:14 Blood Culture - Preliminary Blood No Growth after 96 hours Assessment and Plan Assessment: 1. Colon cancer with hepatic metastases, worsening 2. Dehydration, present on admission, oral intake poor 3. Severe malnutrition, BMI 18.3 4. Elevated LFTs secondary to hepatic malignancy 5. Elevated plasma lactic acid with sepsis 6. Leukocytosis 7. Anemia of malignancy 8. No code, no CPR, no intubation. Plan: Continue with supportive care. Patient has been made no code, no CPR, no intubation. family meeting with child welfare social worker to further discuss hospice/GIP/ comfort care/placementand arrange MDPOA. prognosis poor. The impression and plan of care has been dictated as directed. : I performed a history and examination of this patient, discussed the same with the dictator. I agree with the dictator's note ,documented as a scribe. Any additional findings or plans will be noted.
--- NOTE | 2017-02-26 17:19 | P.DS ---
Providers Date of admission: 02/21/17 01:49 Expected date of discharge: 02/26/17 Attending physician: Ross Paris Consults: 02/21/17 01:49 Consult Physician Urgent Consulting Provider: Devi Cartagena Consult Reason/Comments: known Do you want consulting provider notified?: Yes 02/21/17 20:24 Consult Physician Routine Consulting Provider: Kim Vincent Consult Reason/Comments: sepsis? Do you want consulting provider notified?: Yes Primary care physician: Stated None Hospital Course: Final diagnoses: 1. Colon cancer with hepatic metastases, worsening 2. Dehydration, present on admission, oral intake poor 3. Severe malnutrition, BMI 18.3 4. Elevated LFTs secondary to hepatic malignancy 5. Elevated plasma lactic acid with sepsis 6. Leukocytosis 7. Anemia of malignancy 8. No code, no CPR, no intubation. 9.comfort care, [facility] Hospice Hospital course: this is a 56-year-old gentleman admitted with colon cancer with metastasis and multiple other medical issues. condition worsening, T bili, LFTs worsening, increased fatigue,increased anxiety, increased pain. family has decided to proceed with hospice, [facility],given patient's poor prognosis.comfort care orders initiated. The impression and plan of care has been dictated as directed. : I performed a history and examination of this patient, discussed the same with the dictator. I agree with the dictator's note ,documented as a scribe. Any additional findings or plans will be noted. Time taken: 35 minutes Patient Condition at Discharge: Poor Plan - Discharge Summary Discharge Rx Participant: No New Discharge Prescriptions: No Action oxyCODONE-APAP 10-325MG [Percocet 10-325 mg] 1 tab PO TID PRN PRN Reason: Pain Discharge Medication List oxyCODONE-APAP 10-325MG [Percocet 10-325 mg] 1 tab PO TID PRN 02/21/17 [History] Follow up Appointment(s)/Referral(s): Joaquin Minor MD [STAFF PHYSICIAN] - As Needed Activity/Diet/Wound Care/Special Instructions: Discharge to [facility] hospice Discharge Disposition: DISCH TO [facility]
--- NOTE | 2017-03-02 15:14 | CDI ---
Documentation Clarification Form Date: 03/02/2017 3:05:00 PM From: JAZMINE Benavidez; Zaira Clifford, Regulatory Compliance Manager Admit Date: 02/21/2017 1:49:00 AM Patient Name: Bran Freeman Visit Number: [id number] Discharge Date: 02/26/2017 ATTENTION: The Clinical Documentation Specialists (CDI) and [facility] Coding Staff appreciate your assistance in clarifying documentation. Please respond to the clarification below the line at the bottom and electronically sign. The CDI & [facility] Coding staff will review the response and follow-up if needed. Please note: Queries are made part of the Legal Health Record. If you have any questions, please contact the author of this message via ITS. Dr. Ayaz Paris Conflicting documentation has been found in the medical record. On H&P, sepsis is documented. Progress note and consult dated 02/22, both state sepsis is unlikely. Discharge summary documents elevated plasma lactic acid and sepsis. In your opinion what is the most clinically appropriate diagnosis for this patient? Sepsis ruled in Other explanation of clinical findings Unable to determine (no explanation for clinical findings) If you have a question about this query, please contact Zaira Clifford Regulatory Compliance Manager at [phone] between 8am and 5pm. Please continue to document in your progress notes and discharge summary in order to capture severity of illness and risk of mortality. Include clinical findings that support your diagnosis. Sepsis ruled out MTDD
== END 2017-02-26 09:34 | disposition hospice, inpatient (51) | DRG 640 ==
LOC: EC 23:56 → 5MS5E 02-21 01:49
PROVIDERS: ADMIT Hospitalist; ATTEND Hospitalist
DX: E86.0 Dehydration (principal); G93.41 Metabolic encephalopathy; E43 Unspecified severe protein-calorie malnutrition; R64 Cachexia; C78.7 Secondary malignant neoplasm of liver and intrahepatic bile duct; C18.9 Malignant neoplasm of colon, unspecified; K72.90 Hepatic failure, unspecified without coma; Z68.1 Body mass index [BMI] 19.9 or less, adult; E87.1 Hypo-osmolality and hyponatremia; D63.0 Anemia in neoplastic disease; F12.90 Cannabis use, unspecified, uncomplicated; F41.9 Anxiety disorder, unspecified; G47.00 Insomnia, unspecified; Z51.5 Encounter for palliative care; Z87.891 Personal history of nicotine dependence; Z79.891 Long term (current) use of opiate analgesic; Z79.899 Other long term (current) drug therapy
CPT/HCPCS: 36415; 74022; 80053; 81001; 82140; 82550; 82553; 83605; 83690; 83735; 84100; 84484; 85025; 85610; 85730; 87040; 87086; 87502; 93005; 94760; 96361; 96365; 96375; 99285

== ENCOUNTER 2017-02-26 09:49 | Inpatient (IN) | payer MEDICAID ==
[2017-02-26] MEDS ORDERED: ATROPINE OPHTH SOLN 1% 5ML BTL SUBLINGUAL PRN (10:33)
[2017-02-26] MEDS ORDERED: LORazepam 2 MG/ML INJ IV PRN (10:33)
[2017-02-26] MEDS ORDERED: ACETAMINOPHEN SUPPOSITORY 650 MG SUPP RECTAL PRN (10:35)
[2017-02-26] MEDS ORDERED: BISACODYL 10 MG SUPP RECTAL PRN (10:35)
[2017-02-26] MEDS ORDERED: ONDANSETRON 4 MG/2 ML VIAL IVP PRN (10:36)
[2017-02-26] MEDS: MORPHINE SULFATE 5 MG/ML SYRINGE IVP PRN ×3 (10:52→14:58)
[2017-02-26] MEDS ORDERED: SCOPOLAMINE 1.5MG/72HR PATCH TRANSDERM SCH (11:00)
[2017-02-26 12:10] VITALS: BMI 22.4
--- NOTE | 2017-02-26 17:41 | P.HPIM ---
History of Present Illness H&P Date: 02/26/17 Chief Complaint: comfort care/hospice interval history:this is a 56-year-old gentleman admitted with colon cancer with metastasis and multiple other medical issues. condition worsening, T bili, LFTs worsening, increased fatigue,increased anxiety, increased pain. family has decided to proceed with hospice, [facility]IP,given patient's poor prognosis.comfort care orders initiated. Past Medical History Past Medical History: GI Bleed Additional Past Medical History / Comment(s): Recent weight loss. stage 4 colon cancer. History of Any Multi-Drug Resistant Organisms: None Reported Past Surgical History: Orthopedic Surgery Additional Past Surgical History / Comment(s): Screws in lt ankle. mediport right chest. Past Anesthesia/Blood Transfusion Reactions: No Reported Reaction Past Psychological History: No Psychological Hx Reported Smoking Status: Former smoker Past Alcohol Use History: None Reported Additional Past Alcohol Use History / Comment(s): past alcohol many years ago Past Drug Use History: Marijuana Additional Drug Use History / Comment(s): Marijuana 4-5xweek - Past Family History Mother History Unknown: Yes Medications and Allergies Home Medications Medication Instructions Recorded Confirmed Type oxyCODONE-APAP 10-325MG [Percocet 1 tab PO TID PRN 02/21/17 02/26/17 History 10-325 mg] Allergies Allergy/AdvReac Type Severity Reaction Status Date / Time No Known Allergies Allergy Verified 02/26/17 10:56 Physical Exam Vitals: Intake and Output 02/26/17 02/26/17 02/26/17 06:59 14:59 22:59 Other: Weight 74.843 kg Patient Weight 02/27/17 06:59 Weight 74.843 kg VITAL SIGNS: [as above] GENERAL: lying in bed, lethargic, a & O X 1, confused HEENT: Conjunctivae normal. eyes normal. oral mucosa dry NECK: No JVD. No thyroid enlargement. No LNs CARDIOVASCULAR: S1, S2 muffled. No murmur RESPIRATION: Breath sounds diminished in the bases. scattered coarse rhonchi , and crackles. ABDOMEN: Soft, nontender . No guarding. no masses palpable..Bowel sounds heard. LEGS: positive edema Thrombosis Risk Factor Assmnt - Choose All That Apply Each Factor Represents 1 point: Age 41-60 years, Swollen legs (current) Thrombosis Risk Factor Assessment Total Risk Factor Score: 2 Thrombosis Risk Factor Assessment Level: Low Risk Assessment and Plan Assessment: 1. Colon cancer with hepatic metastases, worsening 2. Dehydration, present on admission, oral intake poor 3. Severe malnutrition, BMI 18.3 4. Elevated LFTs secondary to hepatic malignancy 5. Elevated plasma lactic acid with sepsis 6. Leukocytosis 7. Anemia of malignancy 8. No code, no CPR, no intubation. 9.comfort care, [facility]IP Hospice plan: Open to [facility] Hospice. Comfort care orders initiated. Prognosis poor The impression and plan of care has been dictated as directed. : I performed a history and examination of this patient, discussed the same with the dictator. I agree with the dictator's note ,documented as a scribe. Any additional findings or plans will be noted.
[2017-02-26] MEDS ORDERED: MORPHINE SULFATE 2 MG/ML SYRINGE IVP PRN (19:14)
--- NOTE | 2017-03-01 11:39 | P.DS ---
Providers Date of admission: 02/26/17 09:49 Expected date of discharge: 02/27/17 Attending physician: Ross Mcdowell Consults: Patient on 02/28/2016. Please refer to nursing documentation for time of . Pulmonary cause of dehydration with contribution from metastatic colon cancer Primary care physician: Ross Mcdowell Plan - Discharge Summary New Discharge Prescriptions: No Action oxyCODONE-APAP 10-325MG [Percocet 10-325 mg] 1 tab PO TID PRN PRN Reason: Pain Discharge Medication List oxyCODONE-APAP 10-325MG [Percocet 10-325 mg] 1 tab PO TID PRN 02/21/17 [History] Discharge Disposition: - Preliminary Cause of Preliminary Cause of : Dehydration and metastatic colon cancer
== END 2017-02-27 00:10 | disposition expired | DRG 374 ==
LOC: 5MS5E 09:49
PROVIDERS: ADMIT Hospitalist; ATTEND Hospitalist
DX: C18.9 Malignant neoplasm of colon, unspecified (principal); E43 Unspecified severe protein-calorie malnutrition; A41.9 Sepsis, unspecified organism; C78.7 Secondary malignant neoplasm of liver and intrahepatic bile duct; E86.0 Dehydration; Z68.1 Body mass index [BMI] 19.9 or less, adult; Z51.5 Encounter for palliative care; D63.0 Anemia in neoplastic disease; F41.9 Anxiety disorder, unspecified; Z87.891 Personal history of nicotine dependence; Z79.891 Long term (current) use of opiate analgesic; Z66 Do not resuscitate